=== PATIENT | male | born 1950 | race Caucasian/White ===

== ENCOUNTER 2022-09-04 06:45 | Inpatient (IN) | payer MEDICARE ==
[2022-09-04 07:09] LABS: Basophils % (A) 0 %; Eosinophils # (A) 0.2 k/uL (0-0.7); Eosinophils % (A) 1 %; HCT 48.2 % (39.0-53.0); HGB 16.6 gm/dL (13.0-17.5); Lymphocytes # (A) 0.6 k/uL (1.0-4.8); Lymphocytes % (A) 3 %; MCH 32.6 pg (25.0-35.0); MCHC 34.5 g/dL (31.0-37.0); MCV 94.4 fL (80.0-100.0); Mean Platelet Volume 7.8; Monocytes # (A) 0.5 k/uL (0-1.0); Monocytes % (A) 2 %; Neutrophils # (A) 20.5 k/uL (1.3-7.7); Neutrophils % (A) 94 %; Platelet Count 370 k/uL (150-450); RDW 12.5 % (11.5-15.5); WBC 21.9 k/uL (3.8-10.6)
[2022-09-04 07:28] LABS: INR 1.1 (<1.2); Partial Thromboplastin Time 22.6 sec (22.0-30.0); Prothrombin Time 11.1 sec (9.0-12.0)
[2022-09-04] MEDS ORDERED: HYDROmorphone 1 MG/ML 1 ML SYRINGE IVP STA ×2 (07:32→12:29)
[2022-09-04 07:40] LABS: ALT 20 U/L (4-49); AST 25 U/L (17-59); African American GFR (CKD) >90 (>60 ml/min/1.73 sqM); Albumin 4.4 g/dL (3.5-5.0); Alkaline Phosphatase 85 U/L (38-126); Anion Gap 12 mmol/L; Blood Urea Nitrogen 27 mg/dL (9-20); Calcium 10.4 mg/dL (8.4-10.2); Carbon Dioxide 32 mmol/L (22-30); Chloride 94 mmol/L (98-107); Glucose 159 mg/dL (74-99); Non-African American GFR(CKD) >90 (>60 ml/min/1.73 sqM); Potassium 3.7 mmol/L (3.5-5.1); Sodium 138 mmol/L (137-145); Total Bilirubin 0.8 mg/dL (0.2-1.3); Total Protein 7.9 g/dL (6.3-8.2)
--- NOTE | 2022-09-04 07:56 | ED ---
General Adult HPI - General Chief complaint: Back Pain/Injury Stated complaint: Possible STEMI Time Seen by Provider: 09/04/22 06:55 Source: patient, EMS, RN notes reviewed, old records reviewed Mode of arrival: EMS Limitations: no limitations - History of Present Illness Initial comments: This is a 71-year-old male who presents emergency Department complaining of thoracic back pain. Patient states she's had an issue with this for 4-6 months. Patient states he has been seeing a back specialist and he saw him yesterday. Patient was started on steroids pain meds and muscle relaxant chest. Patient states the pain is worse today and he does have some pain radiating down his left arm which is typical. Patient states he was up all night and he vomited multiple times. Patient denies any abdominal pain patient denies any diarrhea per patient as any fever chills or cough. Patient denies any chest pain or difficulty breathing or shortness of breath. Patient denies headache patient denies numbness weakness that is focal. Patient denies any injury or trauma. - Related Data Home Medications Medication Instructions Recorded Confirmed Albuterol Sulfate [Ventolin HFA] 1 - 2 puff INHALATION RT-Q6H PRN 09/04/22 09/04/22 Aspirin EC [Ecotrin] 325 mg PO DAILY 09/04/22 09/04/22 Clopidogrel [Plavix] 75 mg PO DAILY 09/04/22 09/04/22 Cyclobenzaprine [Flexeril] 5 mg PO TID 09/04/22 09/04/22 Enalapril [Vasotec] 20 mg PO DAILY 09/04/22 09/04/22 HYDROcodone/APAP 5-325MG [[place] 1 tab PO Q4HR PRN 09/04/22 09/04/22 5-325] Multivitamins, Thera [Multivitamin 1 tab PO DAILY 09/04/22 09/04/22 (formulary)] Pravastatin Sodium [Pravachol] 40 mg PO DAILY 09/04/22 09/04/22 carvediloL [Coreg] 3.125 mg PO BID 09/04/22 09/04/22 methylPREDNISolone [Medrol Dose See Taper PO DIRECTED 09/04/22 09/04/22 Pack] Allergies Allergy/AdvReac Type Severity Reaction Status Date / Time No Known Allergies Allergy Verified 09/04/22 07:08 Review of Systems ROS Statement: Those systems with pertinent positive or pertinent negative responses have been documented in the HPI. ROS Other: All systems not noted in ROS Statement are negative. Past Medical History Past Medical History: Coronary Artery Disease (CAD), Hypertension, Myocardial Infarction ([place]) Additional Past Medical History / Comment(s): back pain History of Any Multi-Drug Resistant Organisms: None Reported Past Surgical History: Heart Catheterization With Stent Additional Past Surgical History / Comment(s): cataract Past Psychological History: No Psychological Hx Reported Smoking Status: Current every day smoker Past Alcohol Use History: Daily Past Drug Use History: Marijuana General Exam - General Exam Comments Initial Comments: GENERAL: Patient is well-developed and well-nourished. Patient is nontoxic and well-hydrated and is in mild distress ENT: Neck is soft and supple. No significant lymphadenopathy is noted. Oropharynx is clear. Moist mucous membranes. Neck has full range of motion without eliciting any pain. EYES: The sclera were anicteric and conjunctiva were pink and moist. Extraocular movements were intact and pupils were equal round and reactive to light. Eyelids were unremarkable. PULMONARY: Unlabored respirations. Good breath sounds bilaterally. No audible rales rhonchi or wheezing was noted. CARDIOVASCULAR: Patient is a regular rate and rhythm no murmurs are heard ABDOMEN: Soft and nontender with normal bowel sounds. SKIN: Skin is clear with no lesions or rashes and otherwise unremarkable. NEUROLOGIC: Patient is alert and oriented x3. Cranial nerves II through XII are grossly intact. Motor and sensory are also intact. Normal speech, volume and content. Symmetrical smile. MUSCULOSKELETAL: Normal extremities with adequate strength and full range of motion. No lower extremity swelling or edema. No calf tenderness. LYMPHATICS: No significant lymphadenopathy is noted PSYCHIATRIC: Normal psychiatric evaluation. Limitations: no limitations Course Vital Signs 09/04/22 09/04/22 09/04/22 06:46 07:46 11:00 Temperature 98 F Pulse Rate 122 H 115 H 114 H Respiratory 22 18 20 Rate Blood Pressure 121/97 122/95 122/95 O2 Sat by Pulse 89 L 93 L 90 L Oximetry Medical Decision Making - Medical Decision Making EKG was interpreted by myself shows sinus tachycardia at 123 bpm OR interval 243 49 QT Interval Is 342 QTC Is 4:15. Patient's EKG Shows No ST Segment Elevation. Patient's Has a Right Bundle Branch Block. Was pt. sent in by a medical professional or institution ([facility], [facility], urgent care, hospital, or care home...) When possible be specific @ -No Did you speak to anyone other than the patient for history (EMS, parent, family, police, friend...)? What history was obtained from this source @ -EMS gave a portion of the history as did the and the kitchen past medical history and brought an MRI disc with her as well Did you review nursing and triage notes (agree or disagree)? Why? @ -I reviewed and agree with nursing and triage notes Were old charts reviewed (outside hosp., previous admission, EMS record, old EKG, old radiological studies, urgent care reports/EKG's, care home records)? Report findings @ -No old charts were reviewed Differential Diagnosis (chest pain, altered mental status, abdominal pain women, abdominal pain men, vaginal bleeding, weakness, fever, dyspnea, syncope, headache, dizziness, GI bleed, back pain, seizure, CVA, palpatations, mental health)? @ -Differential Chest Pain: Stable Angina, Unstable Angina, STEMI, NSTEMI Aortic Dissection, Pneumothorax, Musculoskeletal, Esophageal Spasm GERD, Cholecystitis, Pancreatitis, Zoster, this is not meant to be an all-inclusive list. EKG interpreted by me (3pts min.). @ -As above X-rays interpreted by me (1pt min.). @ -None done CT interpreted by me (1pt min.). @ -I interpreted the chest x-ray chest x-ray shows fluid filled stomach and esophagus radiologist included the first and second portion of the water and was fluid-filled U/S interpreted by me (1pt. min.). @ -None done What testing was considered but not performed or refused? (CT, X-rays, U/S, labs)? Why? @ -None What meds were considered but not given or refused? Why? @ -None Did you discuss the management of the patient with other professionals (professionals i.e. [facility], [facility], lab, RT, psych nurse, social work nurse, field mechanical meter tester, teacher, psychological operations officer, adult protective caseworker)? Give summary @ -No Was smoking cessation discussed for >3mins.? @ -No Was critical care preformed (if so, how long)? @ -No Were there social determinants of health that impacted care today? How? (Homelessness, low income, unemployed, alcoholism, drug addiction, transportation, low edu. Level, literacy, decrease access to med. care, penitentiary, rehab)? @ -No Was there de-escalation of care discussed even if they declined (Discuss DNR or withdrawal of care, Hospice)? DNR status @ -No What co-morbidities impacted this encounter? (DM, HTN, Smoking, COPD, CAD, Cancer, CVA, ARF, Chemo, Hep., AIDS, mental health diagnosis, sleep apnea, morbid obesity)? @ -None Was patient admitted / discharged? Hospital course, mention meds given and route, prescriptions, significant lab abnormalities, going to OR and other pertinent info. @ -Patient is going to be admitted. I was concerned about a pulmonary embolism or an aortic dissection the patient's severe back pain this morning a CAT scan was done and it did not show any pulmonary embolism or any aortic dissection however it did show a fluid-filled soft his stomach and first and second portion of the widened acting like a small bowel obstruction but no actual obstruction was noted. I did put an NG and the patient at this time and the patient received multiple doses of pain meds for the back pain. Undiagnosed new problem with uncertain prognosis? @ -Small bowel obstruction Drug Therapy requiring intensive monitoring for toxicity (Heparin, Nitro, Insuli n, Cardizem)? @ -No Were any procedures done? @ -No Diagnosis/symptom? @ -Small bowel obstruction Acute, or Chronic, or Acute on Chronic? @ -Acute Uncomplicated (without systemic symptoms) or Complicated (systemic symptoms)? @ -Uncomplicated Side effects of treatment? @ -No Exacerbation, Progression, or Severe Exacerbation? @ -No Poses a threat to life or bodily function? How? (Chest pain, [place], [place], pneumonia, PE, COPD, DKA, ARF, appy, cholecystitis, CVA, Diverticulitis, Homicidal, Suicidal, threat to staff... and all critical care pts) @ -No Diagnosis/symptom? @ -Chronic back pain Acute, or Chronic, or Acute on Chronic? @ -Chronic Uncomplicated (without systemic symptoms) or Complicated (systemic symptoms)? @ -Uncomplicated Side effects of treatment? @ -none Exacerbation, Progression, or Severe Exacerbation] @ -no Poses a threat to life or bodily function? @ -no - Lab Data Result diagrams: 09/04/22 07:00 09/04/22 07:00 Lab Results 09/04/22 09/04/22 09/04/22 Range/Units 07:00 07:00 07:00 WBC 21.9 H (3.8-10.6) k/uL RBC 5.10 (4.30-5.90) m/uL Hgb 16.6 (13.0-17.5) gm/dL Hct 48.2 (39.0-53.0) % MCV 94.4 (80.0-100.0) fL MCH 32.6 (25.0-35.0) pg MCHC 34.5 (31.0-37.0) g/dL RDW 12.5 (11.5-15.5) % Plt Count 370 (150-450) k/uL MPV 7.8 Neutrophils % 94 % Lymphocytes % 3 % Monocytes % 2 % Eosinophils % 1 % Basophils % 0 % Neutrophils # 20.5 H (1.3-7.7) k/uL Lymphocytes # 0.6 L (1.0-4.8) k/uL Monocytes # 0.5 (0-1.0) k/uL Eosinophils # 0.2 (0-0.7) k/uL Basophils # 0.0 (0-0.2) k/uL PT 11.1 (9.0-12.0) sec INR 1.1 (<1.2) APTT 22.6 (22.0-30.0) sec D-Dimer (<0.60) mg/L FEU Sodium 138 (137-145) mmol/L Potassium 3.7 (3.5-5.1) mmol/L Chloride 94 L (98-107) mmol/L Carbon Dioxide 32 H (22-30) mmol/L Anion Gap 12 mmol/L BUN 27 H (9-20) mg/dL Creatinine 0.61 L (0.66-1.25) mg/dL Est GFR (CKD-EPI)AfAm >90 (>60 ml/min/1.73 sqM) Est GFR (CKD-EPI)NonAf >90 (>60 ml/min/1.73 sqM) Glucose 159 H (74-99) mg/dL Calcium 10.4 H (8.4-10.2) mg/dL Magnesium (1.6-2.3) mg/dL Total Bilirubin 0.8 (0.2-1.3) mg/dL AST 25 (17-59) U/L ALT 20 (4-49) U/L Alkaline Phosphatase 85 (38-126) U/L Troponin I (0.000-0.034) ng/mL Total Protein 7.9 (6.3-8.2) g/dL Albumin 4.4 (3.5-5.0) g/dL Urine Opiates Screen (NotDetected) Ur Oxycodone Screen (NotDetected) Urine Methadone Screen (NotDetected) Ur Propoxyphene Screen (NotDetected) Ur Barbiturates Screen (NotDetected) U Tricyclic Antidepress (NotDetected) Ur Phencyclidine Scrn (NotDetected) Ur Amphetamines Screen (NotDetected) U Methamphetamines Scrn (NotDetected) U Benzodiazepines Scrn (NotDetected) Urine Cocaine Screen (NotDetected) U Marijuana (THC) Screen (NotDetected) 09/04/22 09/04/22 09/04/22 Range/Units 07:00 07:00 07:00 WBC (3.8-10.6) k/uL RBC (4.30-5.90) m/uL Hgb (13.0-17.5) gm/dL Hct (39.0-53.0) % MCV (80.0-100.0) fL MCH (25.0-35.0) pg MCHC (31.0-37.0) g/dL RDW (11.5-15.5) % Plt Count (150-450) k/uL MPV Neutrophils % % Lymphocytes % % Monocytes % % Eosinophils % % Basophils % % Neutrophils # (1.3-7.7) k/uL Lymphocytes # (1.0-4.8) k/uL Monocytes # (0-1.0) k/uL Eosinophils # (0-0.7) k/uL Basophils # (0-0.2) k/uL PT (9.0-12.0) sec INR (<1.2) APTT (22.0-30.0) sec D-Dimer 3.50 H (<0.60) mg/L FEU Sodium (137-145) mmol/L Potassium (3.5-5.1) mmol/L Chloride (98-107) mmol/L Carbon Dioxide (22-30) mmol/L Anion Gap mmol/L BUN (9-20) mg/dL Creatinine (0.66-1.25) mg/dL Est GFR (CKD-EPI)AfAm (>60 ml/min/1.73 sqM) Est GFR (CKD-EPI)NonAf (>60 ml/min/1.73 sqM) Glucose (74-99) mg/dL Calcium (8.4-10.2) mg/dL Magnesium 2.0 (1.6-2.3) mg/dL Total Bilirubin (0.2-1.3) mg/dL AST (17-59) U/L ALT (4-49) U/L Alkaline Phosphatase (38-126) U/L Troponin I <0.012 (0.000-0.034) ng/mL Total Protein (6.3-8.2) g/dL Albumin (3.5-5.0) g/dL Urine Opiates Screen (NotDetected) Ur Oxycodone Screen (NotDetected) Urine Methadone Screen (NotDetected) Ur Propoxyphene Screen (NotDetected) Ur Barbiturates Screen (NotDetected) U Tricyclic Antidepress (NotDetected) Ur Phencyclidine Scrn (NotDetected) Ur Amphetamines Screen (NotDetected) U Methamphetamines Scrn (NotDetected) U Benzodiazepines Scrn (NotDetected) Urine Cocaine Screen (NotDetected) U Marijuana (THC) Screen (NotDetected) 09/04/22 Range/Units 07:53 WBC (3.8-10.6) k/uL RBC (4.30-5.90) m/uL Hgb (13.0-17.5) gm/dL Hct (39.0-53.0) % MCV (80.0-100.0) fL MCH (25.0-35.0) pg MCHC (31.0-37.0) g/dL RDW (11.5-15.5) % Plt Count (150-450) k/uL MPV Neutrophils % % Lymphocytes % % Monocytes % % Eosinophils % % Basophils % % Neutrophils # (1.3-7.7) k/uL Lymphocytes # (1.0-4.8) k/uL Monocytes # (0-1.0) k/uL Eosinophils # (0-0.7) k/uL Basophils # (0-0.2) k/uL PT (9.0-12.0) sec INR (<1.2) APTT (22.0-30.0) sec D-Dimer (<0.60) mg/L FEU Sodium (137-145) mmol/L Potassium (3.5-5.1) mmol/L Chloride (98-107) mmol/L Carbon Dioxide (22-30) mmol/L Anion Gap mmol/L BUN (9-20) mg/dL Creatinine (0.66-1.25) mg/dL Est GFR (CKD-EPI)AfAm (>60 ml/min/1.73 sqM) Est GFR (CKD-EPI)NonAf (>60 ml/min/1.73 sqM) Glucose (74-99) mg/dL Calcium (8.4-10.2) mg/dL Magnesium (1.6-2.3) mg/dL Total Bilirubin (0.2-1.3) mg/dL AST (17-59) U/L ALT (4-49) U/L Alkaline Phosphatase (38-126) U/L Troponin I (0.000-0.034) ng/mL Total Protein (6.3-8.2) g/dL Albumin (3.5-5.0) g/dL Urine Opiates Screen Detected H (NotDetected) Ur Oxycodone Screen Not Detected (NotDetected) Urine Methadone Screen Not Detected (NotDetected) Ur Propoxyphene Screen Not Detected (NotDetected) Ur Barbiturates Screen Not Detected (NotDetected) U Tricyclic Antidepress Not Detected (NotDetected) Ur Phencyclidine Scrn Not Detected (NotDetected) Ur Amphetamines Screen Not Detected (NotDetected) U Methamphetamines Scrn Not Detected (NotDetected) U Benzodiazepines Scrn Not Detected (NotDetected) Urine Cocaine Screen Not Detected (NotDetected) U Marijuana (THC) Screen Not Detected (NotDetected) Disposition Clinical Impression: Small bowel obstruction, Chronic back pain Disposition: ADMITTED IP TO THIS HOSP Referrals: Anton Cruz MD [Primary Care Provider] - 1-2 days Time of Disposition: 13:22
--- NOTE | 2022-09-04 08:14 | XR ---
EXAMINATION TYPE: XR chest 2V DATE OF EXAM: 09/04/2022 COMPARISON: None INDICATION: Difficulty breathing TECHNIQUE: Frontal and lateral views of the chest are obtained. FINDINGS: The heart size is normal. The pulmonary vasculature is normal. The lungs are clear. IMPRESSION: 1. No acute pulmonary process.
--- NOTE | 2022-09-04 08:15 | XR ---
EXAMINATION TYPE: XR KUB DATE OF EXAM: 09/04/2022 COMPARISON: None INDICATION: Abdomen pain TECHNIQUE: Single view abdomen frontal supine view FINDINGS: There is a normal bowel gas pattern. Psoas margins are normal. No organomegaly is present. Cam deformity is noted at the bilateral hips. Degenerative changes are through the lumbar spine. Sacr oiliac joints are poorly visualized. Consider possible fusion. IMPRESSION: 1. No acute abdominal changes.
[2022-09-04 09:01] LABS: Amphetamine Screen,Urine Not Detected (NotDetected); Barbiturate Screen,Urine Not Detected (NotDetected); Benzodiazepines Screen,Urine Not Detected (NotDetected); Cocaine Screen,Urine Not Detected (NotDetected); Methadone Screen, Urine Not Detected (NotDetected); Opiate Screen,Urine Detected (NotDetected); Oxycodone Screen, Urine Not Detected (NotDetected); Phencyclidine Screen,Urine Not Detected (NotDetected); Tricyclic Antidepressant,Urine Not Detected (NotDetected); Urn Cannabinoid Scrn Not Detected (NotDetected)
[2022-09-04] MEDS ORDERED: ONDANSETRON 4 MG/2 ML VIAL IVP STA (10:00)
--- NOTE | 2022-09-04 11:35 | CT ---
EXAMINATION TYPE: CT angio thor/abd pel aorta DATE OF EXAM: 09/04/2022 COMPARISON: None HISTORY: Back pain and elevated d-dimer CT DLP: 1685.8 mGycm Automated exposure control for dose reduction was used. Contrast: None Technique: Axial images 5 mm thick sections. Reconstructed images in the coronal and sagittal plane. 3-D reconstructed images through the aorta were performed. FINDINGS: There is a three-vessel arch. Basilar calcifications within the aorta. No aneurysmal dilatation is ev ident. No acute pulmonary embolism. No aortic dissection. The abdominal aorta has vascular calcification. Celiac axis and superior mesenteric arteries may have some narrowing at the origins. The bilateral renal arteries appear normal no aneurysmal dilatation i s evident. There is some mild fusiform prominence of the mid abdominal aorta measuring 3.0 cm. Some f usiform prominence of the distal abdominal aorta measures 3.3 cm above the bifurcation. Mild prominen ce of the common iliac vessels are present greater within the distal left common iliac artery measuri ng 1.9 cm. Internal and external iliac vessels are patent. Common femoral arteries are patent. Ascending thoracic aorta at the level of the main pulmonary artery is 0.6 cm. Main pulmonary artery a t the bifurcation is 2.[address] CHEST: The esophagus is prominent and fluid-filled throughout its visualized course. Portions of t he thyroid visualized is there is some compressive atelectasis within the dependent right lung base. Pneumonia could be considered. Emphysematous changes evident within the lung corcoran. There is some mi ld hilar prominence bilaterally. Some underlying adenopathy could be considered. Enlarged mediastinal adenopathy is not evident coronary artery calcification is noted. CT ABDOMEN: Stomach is distended with fluid. The duodenum likewise appears prominent and fluid-filled this appears to terminate at the third portion of the duodenum. No underlying obstruction is identif ied. The additional small bowel loops have a normal caliber. Note is made of diverticular changes wit hin the sigmoid colon. A large fecal bolus is present. Correlate for fecal impaction. Liver and spleen appear normal density without discrete masses or cysts. The adrenal glands are unrem arkable. Kidneys appear normal without masses or cysts or hydronephrosis. Gallbladder is unremarkable . Pancreas normal. CT PELVIS: Urinary bladder appears normal. Prostate is within normal limits. IMPRESSION: 1. NO ACUTE PULMONARY EMBOLISM. 2. THORACIC AORTA APPEARS WITHIN NORMAL LIMITS. 3. FUSIFORM PROMINENCE OF THE MID AND DISTAL ABDOMINAL AORTA WITH THE GREATEST AP DIAMETER 3.3 CM ABO VE THE BIFURCATION. SOME FUSIFORM PROMINENCE OF THE DISTAL LEFT COMMON ILIAC ARTERY IS ALSO NOTED. 4. NO SUSPICIOUS CHANGES FOR AORTIC DISSECTION. 5. FLUID-FILLED ESOPHAGUS, STOMACH, AND FIRST AND SECOND PORTIONS OF DUODENUM. AN OBSTRUCTION THIRD P ORTION THE DUODENUM IS NOT IDENTIFIED. HOWEVER, ADDITIONAL WORKUP IS RECOMMENDED
[2022-09-04] MEDS ORDERED: SODIUM CHLORIDE 0.9% 1,000 ML IV ONE (13:26)
[2022-09-04] MEDS ORDERED: HYDROmorphone 1 MG/ML 1 ML SYRINGE IVP PRN (13:28)
--- NOTE | 2022-09-04 15:34 | XR ---
EXAMINATION TYPE: XR chest 1V confirm line [facility] DATE OF EXAM: 09/04/2022 COMPARISON: 09/04/2022 INDICATION: NG tube placement TECHNIQUE: Single frontal view of the chest is obtained. FINDINGS: The heart size is normal. The pulmonary vasculature is normal. The lungs are clear. There is placement of a nasogastric tube. Distal tip is difficult to identify. The catheter appears t o extend at least to the gastroesophageal junction. Consider abdomen study for there are visualizatio n of the distal tip. This potentially could be within the distal esophagus. IMPRESSION: 1. No acute pulmonary process. 2. Nasogastric tube tip placement potentially could be in the distal esophagus. This is poorly visual ized. Consider abdomen film for better visualization
[2022-09-04] MEDS ORDERED: MORPHINE SULFATE 2 MG/ML SYRINGE IVP PRN (18:17)
[2022-09-04] MEDS ORDERED: ONDANSETRON 4 MG/2 ML VIAL IVP PRN (18:19)
[2022-09-04] MEDS ORDERED: PANTOPRAZOLE 40 MG/10 ML VIAL IVP SCH (18:30)
[2022-09-04] MEDS ORDERED: hydrALAZINE HCL 20 MG/ML 1 ML VIAL IVP PRN (18:34)
[2022-09-04] MEDS ORDERED: LORazepam 2 MG/ML INJ IV PRN ×4 (18:37)
--- NOTE | 2022-09-04 18:40 | P.HPIM ---
History of Present Illness H&P Date: 09/04/22 Patient is a pleasant 71-year-old male who presents to [facility] with increased nausea vomiting and abdominal pain. Abdominal pain radiates to the back. Patient states that this past Wednesday he went to take a shower and he felt excruciating back pain. He had an appointment with a spinal specialist that today and he was determined to go there. He was given pain medications muscle relaxer and pain improved. However since then patient has had increased nausea and vomiting. Last BM was about 4 days ago. Patient admits to dyspepsia. Patient denies fevers or chills. Patient denies shortness of breath or chest pain. Past medical history includes COPD, hypertension, BPH, coronary artery disease status post PTCA 1, but dependence, alcohol dependence, marijuana use. Review of Systems A 14 point review of systems was assessed patient was only positive for those pertinent in HPI Past Medical History Past Medical History: Coronary Artery Disease (CAD), Cancer, Hyperlipidemia, Hypertension, Myocardial Infarction (MD), Osteoarthritis (OA) Additional Past Medical History / Comment(s): back pain Last Myocardial Infarction Date:: 2009 History of Any Multi-Drug Resistant Organisms: None Reported Past Surgical History: Heart Catheterization With Stent Additional Past Surgical History / Comment(s): cataract, skin ca removed Past Anesthesia/Blood Transfusion Reactions: No Reported Reaction Date of Last Stent Placement:: 2009 Past Psychological History: No Psychological Hx Reported Smoking Status: Current every day smoker Past Alcohol Use History: Daily Additional Past Alcohol Use History / Comment(s): 1-3 rum and cokes daily, sometimes he skips a few days, hasnt had a drink since . Past Drug Use History: Marijuana Additional Drug Use History / Comment(s): daily marijuana for arthritis pain - Past Family History Mother Additional Family Medical History / Comment(s): from cervical CA Brother(s) Family Medical History: Dementia Additional Family Medical History / Comment(s): from complications from dementia Sister(s) Family Medical History: COPD Additional Family Medical History / Comment(s): from lung ca at age 68 Medications and Allergies Home Medications Medication Instructions Recorded Confirmed Type Albuterol Sulfate [Ventolin HFA] 1 - 2 puff INHALATION RT-Q6H PRN 09/04/22 09/04/22 History Aspirin EC [Ecotrin] 325 mg PO DAILY 09/04/22 09/04/22 History Clopidogrel [Plavix] 75 mg PO DAILY 09/04/22 09/04/22 History Cyclobenzaprine [Flexeril] 5 mg PO TID 09/04/22 09/04/22 History Enalapril [Vasotec] 20 mg PO DAILY 09/04/22 09/04/22 History HYDROcodone/APAP 5-325MG [[place] 1 tab PO Q4HR PRN 09/04/22 09/04/22 History 5-325] Multivitamins, Thera [Multivitamin 1 tab PO DAILY 09/04/22 09/04/22 History (formulary)] Pravastatin Sodium [Pravachol] 40 mg PO DAILY 09/04/22 09/04/22 History carvediloL [Coreg] 3.125 mg PO BID 09/04/22 09/04/22 History methylPREDNISolone [Medrol Dose See Taper PO DIRECTED 09/04/22 09/04/22 History Pack] Allergies Allergy/AdvReac Type Severity Reaction Status Date / Time No Known Allergies Allergy Verified 09/04/22 07:08 Physical Exam Osteopathic Statement: *. No significant issues noted on an osteopathic structural exam other than those noted in the History and Physical/Consult. Vitals: Vital Signs Temp Pulse Resp BP BP Pulse Ox 09/04/22 16:50 97.3 F L 18 117/85 95 09/04/22 15:12 97.8 F 117 H 14 116/93 94 L 09/04/22 11:00 114 H 20 122/95 90 L 09/04/22 07:46 115 H 18 122/95 93 L 09/04/22 06:46 98 F 122 H 22 121/97 89 L Intake and Output 09/04/22 09/04/22 09/04/22 06:59 14:59 22:59 Output Total 300 Balance -300 Output: Urine 300 Other: # Voids 1 Weight 88.451 kg 88.451 kg General: [non toxic], [no distress], [appears older than stated age] Derm: [warm], [dry] Head: [atraumatic], [normocephalic], [symmetric] Eyes: [EOMI], [no lid lag], [anicteric sclera] Mouth: [no lip lesion], [mucus membranes moist] Cardiovascular: [S1S2 reg], [no murmur], [positive posterior tibial pulse bila teral], Lungs: [CTA bilateral], [no rhonchi, no rales] , [no accessory muscle use] Abdominal: [soft], [ epigastric tender to palpation], [no guarding], [no appreciable organomegaly] Ext: [no gross muscle atrophy], [no edema], [no contractures] Neuro: [ CN II-XI grossly intact], [no focal neuro deficits] Psych: [Alert], [oriented], [appropriate affect] Results CBC & Chem 7: 09/04/22 07:00 09/04/22 07:00 Labs: Abnormal Lab Results - Last 24 Hours (Table) 09/04/22 09/04/22 09/04/22 Range/Units 07:00 07:00 07:00 WBC 21.9 H (3.8-10.6) k/uL Neutrophils # 20.5 H (1.3-7.7) k/uL Lymphocytes # 0.6 L (1.0-4.8) k/uL D-Dimer 3.50 H (<0.60) mg/L FEU Chloride 94 L (98-107) mmol/L Carbon Dioxide 32 H (22-30) mmol/L BUN 27 H (9-20) mg/dL Creatinine 0.61 L (0.66-1.25) mg/dL Glucose 159 H (74-99) mg/dL Calcium 10.4 H (8.4-10.2) mg/dL Urine Opiates Screen (NotDetected) 09/04/22 Range/Units 07:53 WBC (3.8-10.6) k/uL Neutrophils # (1.3-7.7) k/uL Lymphocytes # (1.0-4.8) k/uL D-Dimer (<0.60) mg/L FEU Chloride (98-107) mmol/L Carbon Dioxide (22-30) mmol/L BUN (9-20) mg/dL Creatinine (0.66-1.25) mg/dL Glucose (74-99) mg/dL Calcium (8.4-10.2) mg/dL Urine Opiates Screen Detected H (NotDetected) Thrombosis Risk Factor Assmnt - DVT/VTE Prophylaxis DVT/VTE Prophylaxis: Mechanical Prophylaxis ordered - Choose All That Apply Each Factor Represents 1 point: Abnormal pulmonary function (COPD) Each Risk Factor Represents 2 Points: Age 61-74 years Thrombosis Risk Factor Assessment Total Risk Factor Score: 3 Thrombosis Risk Factor Assessment Level: Moderate Risk Assessment and Plan Assessment: 1. Nausea vomiting and abdominal pain likely due to small bowel obstruction IV fluid Pain control Consult general surgery Zofran when necessary nausea Continue intermittent suctioning NPO 2. Leukocytosis secondary to #1 Obtain cultures IV antibiotics provided Check pro-calcitonin level 3. positive d-dimer CT negative for PE 4. Hypercalcemia Check ionized calcium Continue to monitor 5. Expiratory wheezing on exam with history of COPD Patient denies shortness of breath or chest pain Duo nebs every 4 hours Pulmicort twice a day Reassess in the morning oxygen 6. History of hypertension Medications currently held blood pressure is at the lower end of normal Continue to monitor Hydralazine IVP when necessary 7. History of coronary artery disease status post PTCA 1 Medications currently held due to patient being nothing by mouth 8. History of hyperlipidemia Statin currently held secondary to being nothing by mouth 9. Alcohol tobacco or marijuana use Cessation counseled [place] protocol 10. GI DVT prophylaxis 11. A.m. labs Disposition: Home with home care Anticipated length of stay greater than 2 midnights Patient is a full code Greater than 45 minutes spent coordinating care documenting and counseling patient Time with Patient: Greater than 30
[2022-09-04] MEDS ORDERED: LEVOFLOXACIN 500MG-D5W PMX 500 MG in DEXTROSE/WATER 1 100ML.BAG IVPB SCH (19:00)
[2022-09-04] MEDS: IPRATROPIUM-ALBUTEROL 3 ML NEB INHALATION SCH ×2 (19:02→23:11)
[2022-09-04] MEDS: BUDESONIDE 1 MG/2 ML NEBU INHALATION SCH (19:02)
[2022-09-04 19:44] LABS: Ionized Calcium 5.2 mg/dL (4.5-5.3)
[2022-09-04] MEDS ORDERED: metroNIDAZOLE-NS PMX 500 MG in SALINE 1 100ML.BAG IVPB SCH (20:00)
[2022-09-05] MEDS: IPRATROPIUM-ALBUTEROL 3 ML NEB INHALATION SCH ×2 (01:30→07:24)
[2022-09-05 03:27] LABS: Glucose,Whole Blood 97 mg/dL (70-110)
[2022-09-05 04:39] VITALS: BP 88/63; PULSE 57; RESP 16; TEMP 97.9
--- NOTE | 2022-09-05 04:58 | P.EN ---
cODE BLUE activated when patient was found unresponsive , no pulse patient last seen at baseline was an hour ago CPR initiated following ACLS protocol . please refer to paper charting for exact code blue event note. initial rhythm was PEA. multiple round of epi given, patient intubated noted to have large amount of stomach content in his mouth with fecal smell dark in color. patient then found to be in Vfib, and was shocked twice and given amiodarone bolus. then was noted to be in Vtach pulseless, he was shocked again for that. last pulse check patient noted to be in acystole , resuscitation effort was stopped and patient pronounced. family notified
[2022-09-05] MEDS: BUDESONIDE 1 MG/2 ML NEBU INHALATION SCH (07:24)
--- NOTE | 2022-09-05 08:41 | P.DS ---
Providers Date of admission: 09/04/22 13:27 Expected date of discharge: 09/05/22 Attending physician: Henrique Ca MD Consults: 09/04/22 13:27 Consult Physician Urgent Consulting Provider: Katarina Quinteros Consult Reason/Comments: Chronic back pain Do you want consulting provider notified?: Yes 09/04/22 17:38 Consult Physician Urgent Consulting Provider: Nicole Salazar Consult Reason/Comments: sbo Do you want consulting provider notified?: Already Contacted Primary care physician: Anton Cruz MD Hospital Course: Patient on 09/05/1903/18/2023 Discharge diagnoses: Small bowel obstruction Sepsis COPD CAD with PTCA x 1 Tobacco dependent Alcohol dependence Marijuana use History of hypertension : 0200 pt was checked on after breathing Tx, appeared to be resting comfortably. 0300 pt found unresponsive by nurse aide during routine vitals check, RN notified pt with not pulse or respirations, code blue called, CPR intitiated. CODE BLUE activated when patient was found unresponsive , no pulse CPR initiated following ACLS protocol. Per documntation, Initial rhythm was PEA. multiple round of epi given, patient intubated noted to have large amount of stomach content in his mouth with fecal smell dark in color. Patient was a pleasant 71-year-old male who presented to [facility] with increased nausea vomiting and abdominal pain. Abdominal pain radiates to the back. Patient states that this past Wednesday he went to take a shower and he felt excruciating back pain. He had an appointment with a spinal specialist that today and he was determined to go there. He was given pain medications muscle relaxer and pain improved. However, since then patient has had increased nausea and vomiting. Last BM was about 4 days ago. Patient admitted to dyspepsia. Patient denied fevers or chills. Patient denied shortness of breath or chest pain. Past medical history includes COPD, hypertension, BPH, coronary artery disease status post PTCA 1, tobacco dependence, alcohol dependence, and marijuana use. Troponin x 1 was negative. Clinical Course and work up: 1. Nausea vomiting and abdominal pain likely due to small bowel obstruction IV fluid Pain control Consult general surgery Zofran when necessary nausea Continue intermittent suctioning NPO CT revealed fluid-filled esophagus, stomach and first and second portions of the duodenum negative PE 2. Leukocytosis secondary to #1 Obtain cultures IV antibiotics provided 0.14 pro-calcitonin level 3. positive d-dimer CT negative for PE 4. Hypercalcemia Check ionized calcium Continue to monitor 5. Expiratory wheezing on exam with history of COPD Patient denies shortness of breath or chest pain Duo nebs every 4 hours Pulmicort twice a day Reassess in the morning oxygen 6. History of hypertension Medications currently held blood pressure is at the lower end of normal Continue to monitor Hydralazine IVP when necessary 7. History of coronary artery disease status post PTCA 1 Medications currently held due to patient being nothing by mouth 8. History of hyperlipidemia Statin currently held secondary to being nothing by mouth 9. Alcohol tobacco or marijuana use Cessation counseled [facility] protocol Patient Condition at Discharge: Critical Plan - Discharge Summary Discharge Rx Participant: No New Discharge Prescriptions: No Action Albuterol Sulfate [Ventolin HFA] 1 - 2 puff INHALATION RT-Q6H PRN PRN Reason: Shortness Of Breath carvediloL [Coreg] 3.125 mg PO BID HYDROcodone/APAP 5-325MG [[place] 5-325] 1 tab PO Q4HR PRN PRN Reason: Pain Clopidogrel [Plavix] 75 mg PO DAILY methylPREDNISolone [Medrol Dose Pack] See Taper PO DIRECTED Multivitamins, Thera [Multivitamin (formulary)] 1 tab PO DAILY Aspirin EC [Ecotrin] 325 mg PO DAILY Pravastatin Sodium [Pravachol] 40 mg PO DAILY Enalapril [Vasotec] 20 mg PO DAILY Cyclobenzaprine [Flexeril] 5 mg PO TID Discharge Medication List Albuterol Sulfate [Ventolin HFA] 1 - 2 puff INHALATION RT-Q6H PRN 09/04/22 [History] Aspirin EC [Ecotrin] 325 mg PO DAILY 09/04/22 [History] Clopidogrel [Plavix] 75 mg PO DAILY 09/04/22 [History] Cyclobenzaprine [Flexeril] 5 mg PO TID 09/04/22 [History] Enalapril [Vasotec] 20 mg PO DAILY 09/04/22 [History] HYDROcodone/APAP 5-325MG [[place] 5-325] 1 tab PO Q4HR PRN 09/04/22 [History] Multivitamins, Thera [Multivitamin (formulary)] 1 tab PO DAILY 09/04/22 [History] Pravastatin Sodium [Pravachol] 40 mg PO DAILY 09/04/22 [History] carvediloL [Coreg] 3.125 mg PO BID 09/04/22 [History] methylPREDNISolone [Medrol Dose Pack] See Taper PO DIRECTED 09/04/22 [History] Follow up Appointment(s)/Referral(s): Anton Cruz MD [Primary Care Provider] - 1-2 days Discharge Disposition: - Preliminary Cause of Preliminary Cause of : PEA
== END 2022-09-05 07:29 | disposition expired | DRG 388 ==
LOC: EC 06:45 → 5NMEDONC 13:27
PROVIDERS: ADMIT Family Medicine; ATTEND Family Medicine
PROC: 0D9670Z Drainage of Stomach with Drainage Device, Via Natural or Artificial Opening (ICD-10-PCS; 2022-09-04)
PROC: 5A19054 Respiratory Ventilation, Single, Nonmechanical (ICD-10-PCS; principal; 2022-09-05)
PROC: 5A12012 Performance of Cardiac Output, Single, Manual (ICD-10-PCS; principal; 2022-09-05)
PROC: 3E033XZ Introduction of Vasopressor into Peripheral Vein, Percutaneous Approach (ICD-10-PCS; principal; 2022-09-05)
PROC: 0BH17EZ Insertion of Endotracheal Airway into Trachea, Via Natural or Artificial Opening (ICD-10-PCS; principal; 2022-09-05)
DX: K56.609 Unspecified intestinal obstruction, unspecified as to partial versus complete obstruction (principal); A41.9 Sepsis, unspecified organism; M54.50 Low back pain, unspecified; G89.29 Other chronic pain; I49.01 Ventricular fibrillation; M54.9 Dorsalgia, unspecified; J44.9 Chronic obstructive pulmonary disease, unspecified; I10 Essential (primary) hypertension; N40.0 Benign prostatic hyperplasia without lower urinary tract symptoms; F10.20 Alcohol dependence, uncomplicated; F12.90 Cannabis use, unspecified, uncomplicated; R00.0 Tachycardia, unspecified; I45.10 Unspecified right bundle-branch block; F17.200 Nicotine dependence, unspecified, uncomplicated; E83.52 Hypercalcemia; E78.5 Hyperlipidemia, unspecified; M19.90 Unspecified osteoarthritis, unspecified site; R10.13 Epigastric pain; D72.829 Elevated white blood cell count, unspecified; I25.10 Atherosclerotic heart disease of native coronary artery without angina pectoris; R79.1 Abnormal coagulation profile; I25.2 Old myocardial infarction; Z95.5 Presence of coronary angioplasty implant and graft; Z79.899 Other long term (current) drug therapy; Z79.82 Long term (current) use of aspirin; Z79.02 Long term (current) use of antithrombotics/antiplatelets; Z85.828 Personal history of other malignant neoplasm of skin; Z71.6 Tobacco abuse counseling; Z71.41 Alcohol abuse counseling and surveillance of alcoholic
CPT/HCPCS: 36415; 71046; 71275; 74018; 74174; 80053; 80306; 82271; 82330; 83735; 84145; 84443; 84484; 85025; 85379; 85610; 85730; 87040; 93005; 94640; 96361; 96374; 96375; 96376; 99285